=== PATIENT | male | born 1985 | race Two or more races ===

== ENCOUNTER 2024-11-10 00:20 | Emergency (ER) | payer MEDICAID, SELFPAY ==
[2024-11-10 00:21] VITALS: BMI 24.2
--- NOTE | 2024-11-10 01:52 | PC.NURSE ---
PPD ON SITE TALKING WITH PATIENT
[2024-11-10 02:20] VITALS: BP 157/84; PULSE 129; RESP 19; TEMP 36.9; O2SAT 96
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
[2024-11-10 04:58] VITALS: BP 139/94; PULSE 122; RESP 18; TEMP 37.2; O2SAT 96
--- NOTE | 2024-11-10 05:04 | PC.NURSE ---
[facility] FAXED FOR POSSIBLE TRAUMA/NEURO TRANSFER, SPOKE WITH MATIAS
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
--- NOTE | 2024-11-10 07:30 | PC.NURSE ---
IN TO ASSESS PT. PT RESTING QUIETLY AT THIS TIME WITH C/O 4/10 HEADACHE. PT WITHOUT FURTHER COMPLAINTS AT THIS TIME. ORDERS RECEIVED AND INITIATED. CALL LIGHT PLACED WITHIN REACH. PLAN FOR REPEAT HEAD CT AT 1200.
[2024-11-10 07:53] VITALS: BP 115/80; PULSE 103; RESP 19; TEMP 36.7; O2SAT 99
[2024-11-10] MEDS: ACETAMINOPHEN 500 MG TABLET 1000 MG PO (09:59)
[2024-11-10 10:21] VITALS: BP 135/80; PULSE 108; RESP 16; TEMP 36.8; O2SAT 97
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
[2024-11-10 12:16] VITALS: BP 138/90; PULSE 87; RESP 15; TEMP 36.8; O2SAT 96
[2024-11-10] MEDS: SODIUM CHLORIDE 0.9% 1000 ML 1,000 ML 125 ML IV (13:26)
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
[2024-11-10 13:37] LABS: Basophils % (Auto) 1 % (0-2.5); Eosinophils # (Auto) 0.1 Thou/mm3 (0.0-0.5); Eosinophils % (Auto) 2 % (0-10); Hematocrit 36.5 % (41.0-53.0); Hemoglobin 11.9 g/dL (13.5-16.0); Immature Granulocytes % (Auto) 0 % (0-0); Immature Granulocytes Auto 0.02 Thou/mm3 (0.00-0.00); Lymphocytes # (Auto) 1.9 Thou/mm3 (1.0-4.8); Lymphocytes % (Auto) 28 % (10-50); Mean Corpuscular HGB Conc 32.6 g/dl (31.0-37.0); Mean Corpuscular Hemoglobin 27.4 pg (25.0-35.0); Mean Corpuscular Volume 84 fL (80-100); Monocytes # (Auto) 0.4 Thou/mm3 (0.0-0.8); Monocytes % (Auto) 6 % (0-12); Neutrophils # (Auto) 4.3 Thou/mm3 (1.8-7.7); Neutrophils % (Auto) 64 % (37-80); Nucleated Red Blood Cell % 0 /100 WBC (0); Platelet Count 299 Thou/mm3 (140-440); RDW Standard Deviation 43.8 fL (35.1-43.9); Red Blood Count 4.34 Miln/mm3 (4.50-5.90); White Blood Count 6.8 Thou/mm3 (3.8-10.6)
--- NOTE | 2024-11-10 13:57 | PC.CM ---
Addendum entered by Paolo Rabago RN 11/10/24 14:45: 1440- Patient refused to be transferred to another hospital and does not want further treatment. Dr. Rashid spoke with patient and made him aware of the risks associated with refusing treatment and transfer for neurosurgery evaluation, patient alert and oriented, decided to leave AMA at this time. Transfer cancelled per Dr. Rashid. ER CN present at time of patient's decision to leave AMA. Updated [facility] and [facility] to cancel transfer request at this time. Addendum entered by Paolo Rabago RN 11/10/24 14:42: 1420- [facility] declined patient transfer, their neurosurgeon Dr. To reviewed imaging reports and determined patient did not need neurosurgery intervention at this time. Original Note: 1328- Received call from ER Dr. Rashid, request transfer for HLOC, patient requires neurosurgery evaluation for ICH. Packet created and imaging disc requested from radiology department.
[2024-11-10 13:59] LABS: INR 1.2 (0.9-1.3); Prothrombin Time 13.4 Seconds (9.0-12.2)
[2024-11-10 14:03] LABS: Alanine Aminotransferase 35 U/L (10-49); Albumin, Serum 4.2 gm/dL (3.5-5.0); Alkaline Phosphatase 148 U/L (46-116); Anion Gap 8 (7-16); Aspartate Amino Transferase 32 U/L (0-34); BUN/Creatinine Ratio 10 Ratio (12-20); Bilirubin,Total 0.4 mg/dL (0.3-1.2); Blood Urea Nitrogen 9 mg/dL (9-23); Carbon Dioxide 24.8 mMol/L (20.0-31.0); Chloride 105 mMol/L (98-107); Creatinine (Component) 0.9 mg/dL (0.6-1.3); Estimated Creatinine Clearance 100.4 mL/min (>60); Globulin 4.1 gm/dL (2.3-3.5); Glucose 106 mg/dL (74-106); Osmolality,Calculated 274 (275-295); Potassium 3.6 mMol/L (3.4-5.1); Sodium 138 mMol/L (136-145); Total Protein 8.3 gm/dL (5.7-8.2); eGFR > 60 See Note
[2024-11-10 14:19] VITALS: BP 141/88; PULSE 92; RESP 18; TEMP 36.9; O2SAT 94
--- NOTE | 2024-11-10 14:36 | PC.NURSE ---
PT NOT WANTING TO SIGN CONSENT FOR TRANSFER. STATES HE WANTS TO GO HOME AND SPEAK WITH FAMILY, HE NEEDS TO TAKE CARE OF HIS MOTHER. DR BARBOUR AND MYSELF WENT IN TO SPEAK WITH PT. PT AGAIN INFORMED OF IMPORTANCE OF TRANSFER TO SEE SPECIALIST, THAT HE HAS BLEEDING IN HIS BRAIN AND IT CAN GET WORSE. HE CAN BE PARALYZED OR . PT VERBALIZED UNDERSTANDING. CONTINUES TO WANT TO LEAVE REGARDLESS OF OUR MEDICAL ADVICE. AMA FORM SIGNED. PT ENCOURAGED TO RETURN IF WORSE OR HE CHANGED HIS MIND.
--- NOTE | 2024-11-16 10:19 | PD.EDADDENDU ---
Emergency Room Addendum Addendum Narrative: At 11 PM on 11/09/24, the care of the patient was transferred to me by Heather Blanco NP. See his notes for complete H & P and ED course. At 6 AM on 11/10/24, the care of the patient was transferred to Dr. Rashid. During my watch, the patient remained stable. Baldo Francois MD
== END 2024-11-10 14:40 | disposition left against medical advice (07) ==
PROVIDERS: Emergency Provider Emergency Medicine; PCP Family Medicine
DX: S09.90XA Unspecified injury of head, initial encounter (principal); Z53.29 Procedure and treatment not carried out because of patient's decision for other reasons; Y09 Assault by unspecified means
CPT/HCPCS: 36415; 70450; 80053; 85025; 85610; 85730; 99284; J7030; A9270

== ENCOUNTER → 2025-03-07 | Outpatient (CLI) | payer MEDICAID, SELFPAY ==
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
== END | disposition home or self-care (01) ==
PROVIDERS: PCP Physician Assistant; Referring Provider Physician Assistant; Visit Provider Physician Assistant
DX: D35.2 Benign neoplasm of pituitary gland (principal); G93.9 Disorder of brain, unspecified
CPT/HCPCS: 70552; A9579